=== PATIENT | female | born 1975 | race Caucasian/White ===

== ENCOUNTER 2023-09-25 07:52 | Emergency (ER) | payer MEDICAID ==
[~2023-09-25] VITALS: Ht 152.4 cm; Wt 67.2 kg
[2023-09-25 08:08] VITALS: BP 114/66; PULSE 59; RESP 16; TEMP 97.8; O2SAT 100
[2023-09-25] MEDS: LIDOCAINE 5% 1 EA PATCH TP ONE (09:03)
[2023-09-25] MEDS: KETOROLAC 30 MG/ML VIAL IM ONE (09:05)
[2023-09-25] MEDS ORDERED: LID5T TP (09:57)
[2023-09-25] MEDS ORDERED: IBUP-2213 PO (09:57)
[2023-09-25 10:33] VITALS: BP 97/50; PULSE 60; RESP 18; TEMP 97.8; O2SAT 99
== END 2023-09-25 10:33 | disposition home or self-care (01) ==
LOC: MED 07:52
DX: S43.402A Unspecified sprain of left shoulder joint, initial encounter (principal); Z79.1 Long term (current) use of non-steroidal anti-inflammatories (NSAID); Z79.899 Other long term (current) drug therapy; X58.XXXA Exposure to other specified factors, initial encounter; Y93.89 Activity, other specified; Y92.69 Other specified industrial and construction area as the place of occurrence of the external cause; Y99.0 Civilian activity done for income or pay
CPT/HCPCS: 73030; 93005; 96372; 99285; J1885